=== PATIENT | female | born 1990 | race Caucasian/White ===

== ENCOUNTER → 2016-04-28 | Outpatient (CLI) | payer BC, OTHER ==
--- NOTE | 2016-04-28 15:07 | US ---
EXAMINATION TYPE: US OB anatomy transabd DATE OF EXAM: 04/28/2016 2:45 PM COMPARISON: NONE HISTORY: anatomy TECHNIQUE: Transabdominal (TA) EXAM MEASUREMENTS: GESTATIONAL AGE / DATING Dates by LMP: (19 weeks/0 days) EDC: 09/22/2016 Dates by Current Scan: (19 weeks/0 days) EDC: 09/22/2016 SURVEY IUP: Single PLACENTA: Anterior PREVIA: No previa JYOTI: 12.2 cm Normal CERVICAL LENGTH (transabdominal: norm > 3.0cm): 3.5 cm BIOMETRY PRESENTATION: Variable LIE: Transverse lie with head maternal L BPD: 4.2 cm 18 weeks / 6 days HC: 16.3 cm 19 weeks / 1 days AC: 13.9 cm 19 weeks / 3 days FL: 2.8 cm 18 weeks / 4 days ESTIMATED WEIGHT IN GRAMS: 267 grams ESTIMATED WEIGHT IN LBS/OZS: 0 lbs. 9 oz. WEIGHT PERCENTAGE BASED ON ESTABLISHED DATE: 43 % HC/AC: Normal FL/AC: Normal HEART RATE: 143 bpm RHYTHM: Normal ANATOMY SEEN (within normal limits): * Lateral Vent (< 1 cm) 0.6 cm * Cisterna Magna (< 1.1 cm) 0.5 cm * Nuchal Fold (< 0.6 cm) 0.5 cm * Cerebellum (varies with age) 1.9 cm Choroid Plexus (bilateral) Midline Falx Cavus Septi Pellucidi Outflow tract: RVOT Stomach Situs Nose / Lips Diaphragm Kidneys (bilateral) Bladder Cord Insert Three Vessel Cord Longitudinal Spine Transverse Spine Arms (bilateral) Legs (bilateral) ANATOMY SEEN (does not appear within normal limits): Four Chamber Heart/LVOT: EIF seen in left ventricle= 2.1 mm ANATOMY NOT SEEN: IMPRESSION: Live single IUP measuring 19 weeks 0 days. EIF seen in left ventricle= 2.1 mm. Placent a [place] seen throughout anterior placenta.
[2016-04-28 15:13] LABS: CH 30.5; CHCM 34.6; HCT 30.7 % (34.0-46.0); HDW 2.81; HGB 10.5 gm/dL (11.4-16.0); MCH 30.5 pg (25.0-35.0); MCHC 34.4 g/dL (31.0-37.0); MCV 88.9 fL (80.0-100.0); Mean Platelet Volume 7.3; RBC 3.45 m/uL (3.80-5.40); RDW 14.7 % (11.5-15.5); WBC 8.8 k/uL (3.8-10.6)
[2016-04-28 15:56] LABS: Glucose 81 mg/dL (74-99); Non-African American GFR(MDRD) >60 (>60 ml/min/1.73 sqM)
[2016-04-28 16:28] LABS: Hepatitis B Surface Ag Index 0.09
[2016-05-01 20:38] LABS: HIV-1/HIV-2 Ab Screen NONREAC (NON REAC)
== END | disposition home or self-care (01) ==
LOC: RADUSWWP 13:43
PROVIDERS: ATTEND Obstetrics & Gynecology
DX: O36.62X0 Maternal care for excessive fetal growth, second trimester, not applicable or unspecified (principal); Z3A.19 19 weeks gestation of pregnancy
CPT/HCPCS: 36415; 76811; 82565; 82947; 85027; 86762; 86780; 86850; 86900; 86901; 87340; 87389

== ENCOUNTER → 2016-06-16 | Outpatient (CLI) | payer BC, OTHER ==
[2016-06-16 16:35] LABS: CH 30.8; CHCM 33.8; HCT 30.8 % (34.0-46.0); HDW 2.74; HGB 10.5 gm/dL (11.4-16.0); MCH 31.4 pg (25.0-35.0); MCHC 34.2 g/dL (31.0-37.0); MCV 91.8 fL (80.0-100.0); Mean Platelet Volume 7.9; RBC 3.35 m/uL (3.80-5.40); RDW 14.4 % (11.5-15.5); WBC 9.4 k/uL (3.8-10.6)
== END ==
LOC: LABWHC1 16:13
PROVIDERS: ATTEND Obstetrics & Gynecology
DX: Z34.92 Encounter for supervision of normal pregnancy, unspecified, second trimester (principal); Z3A.00 Weeks of gestation of pregnancy not specified
CPT/HCPCS: 36415; 82950; 85027

== ENCOUNTER 2016-09-16 05:53 | Inpatient (IN) | payer BC, OTHER ==
--- NOTE | 2016-09-15 17:57 | P.HPOB ---
History of Present Illness H&P Date: 09/15/16 Chief Complaint: Induction of labor This is a 25-year-old female 2 para 1, with an estimated date of confinement of 09/22/2016, estimated gestational age of 39 and one sevenths weeks, who presents to labor and delivery for induction of labor. She admits to good movement. She has been feeling irregular contractions. She did have ultrasounds with maternal medicine due to an echogenic focus noted in the heart. She declined chromosomal testing. echo was within normal limits. Obstetrical history: . History of 1 vaginal delivery at term with no complications. Gynecologic history: No history of sexually transmitted diseases. Social history: She is single. She is currently unemployed. Review of Systems Constitutional: Denies chills, Denies fever Eyes: denies blurred vision, denies pain Ears, nose, mouth and throat: Denies headache, Denies sore throat Cardiovascular: Denies chest pain, Denies shortness of breath Respiratory: Denies cough Gastrointestinal: Reports abdominal pain (Irregular contractions) Genitourinary: Reports pelvic pain, Reports Musculoskeletal: Reports low back pain, Denies myalgias Neurological: Denies numbness, Denies weakness Past Medical History Additional Past Medical History / Comment(s): Gastritis, history of anemia Past Surgical History: No Surgical Hx Reported Past Psychological History: No Psychological Hx Reported Smoking Status: Current every day smoker Past Alcohol Use History: None Reported Past Drug Use History: None Reported Medications and Allergies Home Medications Medication Instructions Recorded Confirmed Type Pnv,Calcium 72/Iron/Folic Acid 1 tab PO DAILY 09/15/16 09/15/16 History [ Plus Tablet] Allergies Allergy/AdvReac Type Severity Reaction Status Date / Time No Known Allergies Allergy Verified 09/15/16 17:54 Exam Osteopathic Statement: *. No significant issues noted on an osteopathic structural exam other than those noted in the History and Physical/Consult. HEENT: Within normal limits Heart: Regular rate and rhythm Lungs: Clear to auscultation bilaterally Abdomen: Cervix: 3 cm/60%/-2 heart tones: 140s by Doppler Extremities: Negative Homans Assessment and Plan (1) 39 weeks gestation of Status: Acute Plan: Proceed with oxytocin induction of labor. Expectant management. Epidural anesthesia if desired.
[2016-09-16] MEDS ORDERED: LIDOCAINE 1% (PF) 10 MG/ML (30 ML SDV) SQ PRN (06:09)
[2016-09-16] MEDS ORDERED: METHYLERGONOVINE 0.2 MG/ML 1 ML AMP IM PRN (06:09)
[2016-09-16] MEDS ORDERED: OXYTOCIN 20 UNITS/1000 ML NS 1,000 ML IV SCH (06:09)
[2016-09-16] MEDS ORDERED: CARBOPROST TROMETHAMINE 250 MCG/ML 1 ML AMP IM PRN (06:09)
[2016-09-16] MEDS ORDERED: TERBUTALINE 1 MG/ML VIAL SQ PRN (06:09)
[2016-09-16] MEDS ORDERED: LACTATED RINGERS 1,000 ML IV SCH ×2 (06:09)
[2016-09-16] MEDS ORDERED: OXYTOCIN 10 UNIT/ML 1 ML VIAL IM PRN (06:09)
[2016-09-16] MEDS ORDERED: LIDOCAINE 1% 20 ML VIAL (10MG/ML) FOR IV START INTRADERMA PRN (06:09)
[2016-09-16 06:19] LABS: Basophils % (A) 0 %; CH 30.6; CHCM 35.1; Eosinophils # (A) 0.1 k/uL (0-0.7); Eosinophils % (A) 2 %; HCT 29.4 % (34.0-46.0); HDW 2.88; HGB 10.4 gm/dL (11.4-16.0); Luc # (Auto) 0.15; Luc % (Auto) 2; Lymphocytes # (A) 2.3 k/uL (1.0-4.8); Lymphocytes % (A) 30 %; MCHC 35.3 g/dL (31.0-37.0); MCV 87.7 fL (80.0-100.0); Mean Platelet Volume 7.7; Monocytes # (A) 0.4 k/uL (0-1.0); Monocytes % (A) 5 %; Neutrophils # (A) 4.9 k/uL (1.3-7.7); Neutrophils % (A) 62 %; RBC 3.35 m/uL (3.80-5.40); RDW 14.3 % (11.5-15.5); WBC 7.9 k/uL (3.8-10.6); WBC (Perox) 8.19
[2016-09-16 06:20] VITALS: BMI 33.3
[2016-09-16] MEDS ORDERED: BUPIVACAINE (PF) 0.25% 30 ML VIAL ONE (10:51)
[2016-09-16] MEDS ORDERED: fentaNYL (PF) 50 MCG/ML 5 ML AMP ONE (10:51)
[2016-09-16] MEDS ORDERED: SODIUM CHLORIDE 0.9% 100 ML BAG ONE (10:51)
[2016-09-16] MEDS ORDERED: BUPIVACAINE (PF) 0.25% 25 ML, fentaNYL (PF) 200 MCG in SODIUM CHLORIDE 0.9% 71 ML EPIDURAL ONE (11:54)
--- NOTE | 2016-09-16 13:16 | P.PROBDLV ---
Vaginal Delivery Note - . Vaginal Delivery Note: The patient progressed to complete dilation after oxytocin induction of labor and artificial rupture membranes with clear fluid noted. She did receive epidural anesthesia. Once reaching complete dilation, she began pushing. Infant's head came to a crown. Infant's head delivered across the perineum in a right occiput anterior lie followed by the anterior shoulder with a right nuchal hand. Nose and mouth are bulb suctioned at the perineum. With one further push, the remainder the infant easily delivered and placed on mother's abdomen. Cord is clamped and cut and infant was taken to warmer for evaluation. A viable male is noted with scores of 8 at 1 minute and 9 at 5 minutes and infant weight of 5 lbs. 14 oz. Placenta delivered shortly thereafter, intact, with a three-vessel cord. Uterus contracted well after oxytocin was given and uterine massage was carried out. Inspection of the perineum revealed a right periurethral laceration. This area was anesthetized with 1% lidocaine and then sutured with 3-0 Vicryl suture in a running locked fashion. It was a small left periurethral abrasion but was noted to be hemostatic. Estimated blood loss is approximately 150 mL. Both mother and infant are in stable condition.
[2016-09-16] MEDS ORDERED: SIMETHICONE 80 MG CHEWABLE PO PRN (13:34)
[2016-09-16] MEDS ORDERED: diphenhydrAMINE 50 MG/ML 1 ML VIAL IVP PRN ×2 (13:34)
[2016-09-16] MEDS ORDERED: Acetaminophen-Codeine 300-30mg TAB PO PRN ×2 (13:34)
[2016-09-16] MEDS ORDERED: ZOLPIDEM 5 MG TAB PO PRN (13:34)
[2016-09-16] MEDS ORDERED: BENZOCAINE/MENTHOL SPRAY 1 GM/SPRAY AEROSOL TOPICAL PRN (13:34)
[2016-09-16] MEDS ORDERED: WITCH HAZEL 1 EACH MED..PAD TOPICAL PRN (13:34)
[2016-09-16] MEDS ORDERED: HYDROCORTISONE 2.5% RECTAL CREAM 30 GM TUBE RECTAL PRN (13:34)
[2016-09-16] MEDS ORDERED: LANOLIN CREAM 5 GM TUBE TOPICAL PRN (13:34)
[2016-09-16] MEDS ORDERED: diphenhydrAMINE 50 MG CAP PO PRN (13:34)
[2016-09-16] MEDS ORDERED: ACETAMINOPHEN TAB 325 MG TAB PO PRN (13:34)
[2016-09-16] MEDS ORDERED: diphenhydrAMINE 25 MG CAP PO PRN (13:34)
[2016-09-16] MEDS: SENNOSIDES-DOCUSATE SODIUM 1 EACH TAB PO SCH (20:21)
[2016-09-17] MEDS: IBUPROFEN 600 MG TAB PO PRN ×2 (08:12→19:51)
[2016-09-17] MEDS: SENNOSIDES-DOCUSATE SODIUM 1 EACH TAB PO SCH ×2 (08:13→19:51)
[2016-09-17 08:19] LABS: Basophils % (A) 0 %; CH 30.4; CHCM 34.7; Eosinophils # (A) 0.1 k/uL (0-0.7); Eosinophils % (A) 1 %; HCT 28.3 % (34.0-46.0); HDW 2.88; HGB 9.6 gm/dL (11.4-16.0); Luc # (Auto) 0.18; Luc % (Auto) 2; Lymphocytes # (A) 2.2 k/uL (1.0-4.8); Lymphocytes % (A) 25 %; MCH 30.1 pg (25.0-35.0); MCHC 34.1 g/dL (31.0-37.0); MCV 88.2 fL (80.0-100.0); Mean Platelet Volume 7.8; Monocytes # (A) 0.4 k/uL (0-1.0); Monocytes % (A) 5 %; Neutrophils % (A) 67 %; RBC 3.21 m/uL (3.80-5.40); RDW 14.3 % (11.5-15.5); WBC 8.9 k/uL (3.8-10.6); WBC (Perox) 9.25
--- NOTE | 2016-09-17 09:06 | P.PNOBGVD ---
Subjective - Subjective Principal diagnosis: Status post vaginal delivery day #1 Interval history: She is doing well. She is bottle feeding. Lochia is decreasing. Pain is well- controlled with ibuprofen. Patient reports: Reports appetite normal, Reports voiding normally, Reports pain well controlled, Reports ambulating normally [place]: doing well, bottle feeding Objective - Latest Vital Signs Latest vital signs: Vital Signs Temp Pulse Resp BP Pulse Ox 09/17/16 04:00 98.2 F 80 16 112/68 09/16/16 23:46 98.0 F 78 18 105/62 09/16/16 22:27 18 09/16/16 20:00 98.1 F 78 18 105/60 09/16/16 16:00 98.2 F 76 18 105/60 99 09/16/16 15:06 60 16 97/55 09/16/16 14:36 60 16 91/62 09/16/16 14:06 68 16 99/56 09/16/16 13:51 66 16 95/53 09/16/16 13:36 77 16 92/52 09/16/16 13:21 79 16 96/53 09/16/16 13:06 96.7 F L 78 16 85/54 Intake and Output 09/16/16 09/17/16 09/17/16 22:59 06:59 14:59 Intake Total 800 Output Total 150 Balance 650 Intake: Oral 800 Output: Estimated Blood Loss 150 Other: # Voids 3 - Exam Extremities: Present: normal. Absent: tenderness, edema Abdomen: Present: normal appearance, soft. Absent: distention, tenderness Uterus: Present: normal, firm. Absent: tenderness - Labs Labs: Abnormal Lab Results - Last 24 Hours (Table) 09/17/16 Range/Units 07:59 RBC 3.21 L (3.80-5.40) m/uL Hgb 9.6 L (11.4-16.0) gm/dL Hct 28.3 L (34.0-46.0) % Assessment and Plan (1) 39 weeks gestation of Narrative/Plan: Present is status post vaginal delivery day #1. Plan is to continue with care today and anticipate discharge home tomorrow. Current Visit: Yes Status: Acute Code(s): Z3A.39 - 39 WEEKS GESTATION OF SNOMED Code(s): 56393582
[2016-09-18 00:42] VITALS: RESP 16
[2016-09-18] MEDS: IBUPROFEN 600 MG TAB PO PRN (07:37)
[2016-09-18 07:55] VITALS: BP 114/67; PULSE 89; TEMP 98.1
--- NOTE | 2016-09-18 08:52 | P.DS ---
Providers Date of admission: 09/16/16 05:53 Expected date of discharge: 09/18/16 Attending physician: Shantal Matos Primary care physician: Stated None - Discharge Diagnosis(es) (1) 39 weeks gestation of Current Visit: Yes Status: Acute Hospital Course: This is a 25-year-old female para 1 who presents at 39 and one sevenths weeks for induction of labor. She underwent oxytocin induction of labor and delivered vaginally a viable male on 09/16/2016 with scores of 8 at 1 minute and 9 at 5 minutes and weight of 5 lbs. 14 oz. Her course has been uncomplicated. She is feeding. Lochia is decreasing. Pain is well-controlled with ibuprofen. Vital signs are stable. Abdomen is soft with fundus firm and nontender. Extremities show negative Homans. Impression is status post vaginal delivery day #1. Plan is to discharge home today. She will be given a prescription for ibuprofen. She is advised follow-up in the office in 6 weeks for check. She is advised to call the office if she has any further questions or concerns prior to her appointment time. Procedures: Oxytocin induction of labor Spontaneous vaginal delivery of a viable male infant on 09/16/2016 Patient Condition at Discharge: Stable Plan - Discharge Summary New Discharge Prescriptions: New Ibuprofen [Motrin] 600 mg PO Q6HR PRN #60 tab PRN Reason: Mild Pain Or Fever >= 100.5 Discharge Medication List Ibuprofen [Motrin] 600 mg PO Q6HR PRN #60 tab 09/18/16 [Rx] Follow up Appointment(s)/Referral(s): Shantal Matos DO [Doctor of Osteopathic Medicine] - 6 Weeks Activity/Diet/Wound Care/Special Instructions: Instructions 1. Do not begin any exercise program for 3 weeks. 2. Do not resume sexual relations for 3 weeks or longer if uncomfortable. 3. You may take tub baths or showers at any time. 4. You may use tampons if desired after 3 weeks. 5. Keep the area of episiotomy (stitches) clean and dry. 6. If you are not nursing, wear a good fitting, supportive bra during the day and limit fluid intake for at least 1 week to prevent breast engorgement. 7. Call the office, [phone], within the next week to make appointment for your 6 week checkup if it has not already been made. 8. Report any of the following occurrences to the doctor promptly: a. Heavy, excessive bleeding b. Chills, fever c. Burning or frequency of urination d. Pain or redness and breasts if nursing e. Increasing pain or swelling in episiotomy (stitches). In addition to the above instructions, the following additional should be followed: 1. No heavy lifting or straining (exercising) until after 6 week checkup. 2. Keep abdominal incision clean and dry: You may wear a dressing if more comfortable. 3. Make office appointment for 10 days after going home or as instructed by her doctor. Discharge Disposition: HOME SELF-CARE
[2016-09-18] MEDS: SENNOSIDES-DOCUSATE SODIUM 1 EACH TAB PO SCH (11:57)
== END 2016-09-18 11:50 | disposition home or self-care (01) | DRG 775 ==
LOC: 4FBP 05:53
PROVIDERS: ADMIT Obstetrics & Gynecology; ATTEND Obstetrics & Gynecology
PROC: 0UQMXZZ Repair Vulva, External Approach (ICD-10-PCS; principal; 2016-09-16)
PROC: 3E033VJ Introduction of Other Hormone into Peripheral Vein, Percutaneous Approach (ICD-10-PCS; principal; 2016-09-16)
PROC: 00HU33Z Insertion of Infusion Device into Spinal Canal, Percutaneous Approach (ICD-10-PCS; principal; 2016-09-16)
PROC: 10E0XZZ Delivery of Products of Conception, External Approach (ICD-10-PCS; principal; 2016-09-16)
PROC: 10907ZC Drainage of Amniotic Fluid, Therapeutic from Products of Conception, Via Natural or Artificial Opening (ICD-10-PCS; principal; 2016-09-16)
PROC: 3E0R3CZ (ICD-10-PCS; principal; 2016-09-16)
DX: O99.334 Smoking (tobacco) complicating childbirth (principal); F17.200 Nicotine dependence, unspecified, uncomplicated; Z37.0 Single live birth; O71.82 Other specified trauma to perineum and vulva; Z3A.39 39 weeks gestation of pregnancy
CPT/HCPCS: 85025; 88307

== ENCOUNTER 2022-10-14 05:57 | Inpatient (IN) | payer BC, OTHER ==
--- NOTE | 2022-10-13 17:51 | P.HPOB ---
History of Present Illness H&P Date: 10/13/22 Chief Complaint: Circumvallate placenta, induction of labor This is a 32 y.o. female, 3, para 2, with an estimated date of confinement of 10/13/2022, estimated gestational age of 40-1/7 weeks, who presents for induction of labor. Her has been complicated by cirumvallate placenta. She has been doing regular NSTs. Her last ultrasound showed an estimated weight of 6#13oz(44%) with all measurements other than AC less than 2 percentile. JYOTI was 8.9 cm. She has been using THC throught the for nausea and was advised of potential risks to fetus. She has been feeling pressure and irregular contractions. labs: Hemoglobin-11.6 Blood type-A+ Antibody screen-neg Rubella-immune Toxoplasma-neg RPR-NR HIV-NR Hepatitis C-neg Random glucose-66 Hepatitis B surface antigen-neg GC/chlamydia/Trich-neg 1 hr. GTT-124 GBS-neg OB Hx: . History of 2 vaginal deliveries at term. Charge Lpn Hx: History of trichomonas, treated 2021. Social Hx: . Works at [employer]. Review of Systems Constitutional: Denies chills, Denies fever Eyes: denies blurred vision, denies pain Ears, nose, mouth and throat: Denies headache, Denies sore throat Cardiovascular: Denies chest pain, Denies shortness of breath Respiratory: Denies cough Gastrointestinal: Reports abdominal pain (irregular contractions), Reports heartburn Genitourinary: Reports pelvic pain, Reports , Denies dysuria, Denies hematuria Musculoskeletal: Reports low back pain Integumentary: Denies pruritus, Denies rash Neurological: Denies numbness, Denies weakness Psychiatric: Denies anxiety, Denies depression Past Medical History Additional Past Medical History / Comment(s): Gastritis, history of anemia History of Any Multi-Drug Resistant Organisms: None Reported Past Surgical History: No Surgical Hx Reported Past Psychological History: No Psychological Hx Reported Smoking Status: Vaper Past Alcohol Use History: None Reported Past Drug Use History: Marijuana - Past Family History Mother Family Medical History: Thyroid Disorder Father Additional Family Medical History / Comment(s): Hodgkin's Disease Medications and Allergies Home Medications Medication Instructions Recorded Confirmed Type Ibuprofen [Motrin] 600 mg PO Q6HR PRN #60 tab 09/18/16 Rx Vit No.180/Iron/Folic 1 each PO 10/13/22 History [ Plus Tablet] Allergies Allergy/AdvReac Type Severity Reaction Status Date / Time No Known Allergies Allergy Verified 09/16/16 06:09 Exam Osteopathic Statement: *. No significant issues noted on an osteopathic structural exam other than those noted in the History and Physical/Consult. HEENT: within normal limits Heart: regular rate and rhythm Lungs: clear to auscultation bilaterally Abdomen: , non-tender Cervix: 4.5 cm/70%/-2 heart tones: 130's by doppler Extremities: neg. John's Assessment and Plan (1) Circumvallate placenta Status: Acute Code(s): O43.119 - CIRCUMVALLATE PLACENTA, UNSPECIFIED TRIMESTER SNOMED Code(s): 1341169 (2) 39 weeks gestation of Status: Acute Code(s): Z3A.39 - 39 WEEKS GESTATION OF SNOMED Code(s): 19882807 Plan: Proceed with oxytocin induction of labor. Expectant management. Epidural anesthesia.
[2022-10-14] MEDS ORDERED: OXYTOCIN 10 UNIT/ML 1 ML VIAL IM PRN (06:31)
[2022-10-14] MEDS ORDERED: LIDOCAINE 1% (10MG/ML) FOR IV START INTRADERMA PRN (06:31)
[2022-10-14] MEDS ORDERED: LIDOCAINE 0.5% (PF) 5 MG/ML (50 ML SDV) SQ PRN (06:31)
[2022-10-14] MEDS ORDERED: CARBOPROST TROMETHAMINE 250 MCG/ML 1 ML AMP IM PRN (06:31)
[2022-10-14] MEDS ORDERED: TERBUTALINE 1 MG/ML VIAL SQ PRN (06:31)
[2022-10-14] MEDS ORDERED: METHYLERGONOVINE 0.2 MG/ML 1 ML AMP IM PRN (06:31)
[2022-10-14] MEDS ORDERED: miSOPROStoL 200 MCG TAB PO PRN (06:31)
[2022-10-14] MEDS ORDERED: TRANEXAMIC 1,000 MG/100ML-NACL 1,000 MG in EMPTY BAG 1 BAG IV PRN (06:31)
[2022-10-14] MEDS ORDERED: OXYTOCIN 30 UNITS/500 ML NS 30 UNIT in SALINE 1 500ML.BAG IV SCH (06:31)
[2022-10-14] MEDS: LACTATED RINGERS 1,000 ML IV SCH ×2 (06:37→14:31)
[2022-10-14 06:43] LABS: Basophils % (A) 0 %; Eosinophils # (A) 0.1 k/uL (0-0.7); Eosinophils % (A) 1 %; HCT 26.7 % (34.0-46.0); HGB 8.9 gm/dL (11.4-16.0); Hypochromasia Slight; Lymphocytes # (A) 1.6 k/uL (1.0-4.8); Lymphocytes % (A) 32 %; MCH 26.6 pg (25.0-35.0); MCHC 33.5 g/dL (31.0-37.0); MCV 79.4 fL (80.0-100.0); Mean Platelet Volume 9.6; Monocytes # (A) 0.3 k/uL (0-1.0); Monocytes % (A) 6 %; Neutrophils % (A) 59 %; Platelet Count 160 k/uL (150-450); Poikilocytosis Slight; RBC 3.36 m/uL (3.80-5.40); RDW 15.8 % (11.5-15.5); WBC 5.1 k/uL (3.8-10.6)
--- NOTE | 2022-10-14 08:33 | P.PROBDLV ---
Vaginal Delivery Note - . Vaginal Delivery Note: The patient progressed to complete dilation fairly rapidly after artificial rupture membranes with meconium fluid noted. She did start nitrous oxide for pain control. Once complete, she pushed for a couple pushes and infant's head came to a crown and then delivered in a right occiput anterior lie across the perineum followed by the anterior shoulder. She is instructed to stop pushing and nose and mouth were bulb suctioned. Nuchal cord times one was reduced aroun d the 's head. With one further push, the remainder the easily delivered and was placed on mother's abdomen. Nose and mouth were again bulb suctioned. Cord was clamped and cut and infant was taken to warmer for evaluation. A viable male is noted with scores of 8 at 1 minute and 8 at 5 minutes. weight is pending at this time. Placenta delivered shortly thereafter, intact, with a three-vessel cord. Meconium staining was noted. Uterus contracted well after oxytocin was given and uterine massage was carried out. Inspection of the perineum revealed no perineal lacerations. Estimated blood loss is approximately 300 mL's. Her bladder was also drained with a catheter. Both mother and infant are in stable condition at this time.
[2022-10-14] MEDS ORDERED: diphenhydrAMINE 25 MG CAP PO PRN (09:10)
[2022-10-14] MEDS ORDERED: ZOLPIDEM 5 MG TAB PO PRN (09:10)
[2022-10-14] MEDS ORDERED: BENZOCAINE/MENTHOL SPRAY 1 GM/SPRAY AEROSOL TOPICAL PRN (09:10)
[2022-10-14] MEDS ORDERED: LANOLIN CREAM 5 GM TUBE TOPICAL PRN (09:10)
[2022-10-14] MEDS ORDERED: IBUPROFEN 600 MG TAB PO PRN (09:10)
[2022-10-14] MEDS ORDERED: diphenhydrAMINE 50 MG CAP PO PRN (09:10)
[2022-10-14] MEDS ORDERED: SIMETHICONE 80 MG CHEWABLE PO PRN (09:10)
[2022-10-14] MEDS ORDERED: HYDROCORTISONE 2.5% RECTAL CREAM 30 GM TUBE RECTAL PRN (09:10)
[2022-10-14] MEDS ORDERED: ACETAMINOPHEN TAB 325 MG TAB PO PRN (09:10)
[2022-10-14 11:37] LABS: Amphetamine Screen,Urine Not Detected (NotDetected); Barbiturate Screen,Urine Not Detected (NotDetected); Benzodiazepines Screen,Urine Not Detected (NotDetected); Cocaine Screen,Urine Not Detected (NotDetected); Methadone Screen, Urine Not Detected (NotDetected); Opiate Screen,Urine Not Detected (NotDetected); Oxycodone Screen, Urine Not Detected (NotDetected); Phencyclidine Screen,Urine Not Detected (NotDetected); Tricyclic Antidepressant,Urine Not Detected (NotDetected); Urn Cannabinoid Scrn Detected (NotDetected)
[2022-10-14] MEDS ORDERED: PRENATAL VIT-IRON-FOLIC ACID 1 EACH TABLET PO SCH (12:00)
[2022-10-14] MEDS ORDERED: SENNOSIDES-DOCUSATE SODIUM 1 EACH TAB PO SCH (20:00)
[2022-10-15 06:53] LABS: Basophils % (A) 0 %; Eosinophils % (A) 1 %; HCT 25.1 % (34.0-46.0); HGB 8.4 gm/dL (11.4-16.0); Hypochromasia Slight; Lymphocytes # (A) 1.6 k/uL (1.0-4.8); Lymphocytes % (A) 26 %; MCH 26.6 pg (25.0-35.0); MCHC 33.5 g/dL (31.0-37.0); MCV 79.3 fL (80.0-100.0); Mean Platelet Volume 9.4; Monocytes # (A) 0.3 k/uL (0-1.0); Monocytes % (A) 4 %; Neutrophils # (A) 4.3 k/uL (1.3-7.7); Neutrophils % (A) 68 %; Platelet Count 162 k/uL (150-450); Poikilocytosis Slight; RBC 3.16 m/uL (3.80-5.40); RDW 15.9 % (11.5-15.5); WBC 6.3 k/uL (3.8-10.6)
--- NOTE | 2022-10-15 08:52 | P.DS ---
Providers Date of admission: 10/14/22 05:57 Expected date of discharge: 10/15/22 Attending physician: Shantal Matos Primary care physician: Stated None - Discharge Diagnosis(es) (1) Circumvallate placenta Current Visit: No Status: Acute (2) 39 weeks gestation of Current Visit: No Status: Acute Hospital Course: This is a 32-year-old female 3 para 2 at 40 and one sevenths weeks who presented for induction of labor due to circumvallate placenta. She underwent oxytocin induction of labor and delivered a viable male on 10/14/2022 with scores of 8 at 1 minute and 8 at 5 minutes and infant weight of 7 lbs. 3 oz. Her course has been uncomplicated. Lochia has been decreasing. Her pain is well-controlled. She is breast-feeding. Vital signs are stable. Abdomen is soft with fundus firm and nontender. Extremities show negative Homans. Impression is status post vaginal delivery day #1. Plan is to discharge home today. Routine instructions are given. She is advised follow-up in the office in 6 weeks for a check. She is advised to call the office if she has any further questions or concerns. She is advised to continue taking her vitamins and iron to her chronic anemia. She has a breast pump at home. Procedures: Oxytocin induction of labor Spontaneous vaginal delivery of a viable male infant on 10/14/2022 Patient Condition at Discharge: Stable Plan - Discharge Summary New Discharge Prescriptions: Continue Vit No.180/Iron/Folic [ Plus Vitamin-Mineral] 1 each PO Discharge Medication List Vit No.180/Iron/Folic [ Plus Vitamin-Mineral] 1 each PO 10/13/22 [History] Follow up Appointment(s)/Referral(s): Shantal Matos DO [Doctor of Osteopathic Medicine] - 6 Weeks Activity/Diet/Wound Care/Special Instructions: Instructions 1. Do not begin any exercise program for 3 weeks. 2. Do not resume sexual relations for 3 weeks or longer if uncomfortable. 3. You may take tub baths or showers at any time. 4. You may use tampons if desired after 3 weeks. 5. Keep the area of episiotomy (stitches) clean and dry. 6. If you are not nursing, wear a good fitting, supportive bra during the day and limit fluid intake for at least 1 week to prevent breast engorgement. 7. Call the office, [phone], within the next week to make appointment for your 6 week checkup if it has not already been made. 8. Report any of the following occurrences to the doctor promptly: a. Heavy, excessive bleeding b. Chills, fever c. Burning or frequency of urination d. Pain or redness and breasts if nursing e. Increasing pain or swelling in episiotomy (stitches). In addition to the above instructions, the following additional should be followed: 1. No heavy lifting or straining (exercising) until after 6 week checkup. 2. Keep abdominal incision clean and dry: You may wear a dressing if more comfortable. 3. Make office appointment for 10 days after going home or as instructed by her doctor. Discharge Disposition: HOME SELF-CARE
[2022-10-15 10:03] VITALS: TEMP 98
[2022-10-15 10:10] VITALS: BP 116/76; PULSE 80; RESP 14
== END 2022-10-15 12:45 | disposition home or self-care (01) | DRG 806 ==
LOC: 4FBP 05:57
PROVIDERS: ADMIT Obstetrics & Gynecology; ATTEND Obstetrics & Gynecology
PROC: 10E0XZZ Delivery of Products of Conception, External Approach (ICD-10-PCS; principal; 2022-10-14)
PROC: 3E033VJ Introduction of Other Hormone into Peripheral Vein, Percutaneous Approach (ICD-10-PCS; 2022-10-14)
PROC: 10907ZC Drainage of Amniotic Fluid, Therapeutic from Products of Conception, Via Natural or Artificial Opening (ICD-10-PCS; 2022-10-14)
PROC: 4A0HXCZ Measurement of Products of Conception, Cardiac Rate, External Approach (ICD-10-PCS; 2022-10-14)
DX: O43.113 Circumvallate placenta, third trimester (principal); O98.32 Other infections with a predominantly sexual mode of transmission complicating childbirth; Z37.0 Single live birth; O99.324 Drug use complicating childbirth; O69.81X0 Labor and delivery complicated by cord around neck, without compression, not applicable or unspecified; O77.0 Labor and delivery complicated by meconium in amniotic fluid; O99.334 Smoking (tobacco) complicating childbirth; F17.290 Nicotine dependence, other tobacco product, uncomplicated; O48.0 Post-term pregnancy; O99.02 Anemia complicating childbirth; D64.9 Anemia, unspecified; Z3A.39 39 weeks gestation of pregnancy; F12.90 Cannabis use, unspecified, uncomplicated; Z86.19 Personal history of other infectious and parasitic diseases; O99.62 Diseases of the digestive system complicating childbirth; K29.70 Gastritis, unspecified, without bleeding
CPT/HCPCS: 80306; 85025; 86850; 86900; 86901; 88307